=== PATIENT | male | born 1985 | race Caucasian/White ===

== ENCOUNTER 2024-04-13 12:56 | Outpatient (AMB) | payer OTHER, SELFPAY ==
--- NOTE | 2024-04-13 13:20 | MHC.OFFWIV ---
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 Patient Tobacco Use Status: Former Tobacco user Allergies No Known Allergies Allergy (Verified 04/13/24 13:22) Do you need a note to return to daycare/school/sports/work: No HPI HPI Comments History of Present Illness Details The patient is a 38-year-old male presenting with a flare-up of eczema. He reports a recurrent dry, itchy, and scaly rash that he associates with his recent haircut. The rash has previously gone away but has returned with increased severity, manifesting primarily on both sides of his face, including the cheeks, forehead, and hairline. The patient has attempted to alleviate symptoms by using various lotions, including an unspecified eczema lotion and regular hydrating lotion. Despite his efforts, he has found minimal relief, with the rash turning bright red post-showering. Hot showers appear to exacerbate the condition. Past medical history includes eczema during childhood, which was treated with lotion, the composition of which the patient does not recall. In addition to the dermatological concerns, the patient reports issues with vision at nighttime but attributes this potentially to age, with no recent ophthalmological evaluation. [facility] Social History Patient Tobacco Use Status: Former Tobacco user Review of Systems Const All systems reviewed & are unremarkable except as noted in HPI and below Physical Exam Vital Signs: Last Vital Signs Pulse 81 04/13/24 13:22 BP 140/100 H 04/13/24 13:22 Pulse Ox 97 04/13/24 13:22 Oxygen Delivery Method Room Air 04/13/24 13:22 BMI result Body Mass Index 29.2 Const General: cooperative, healthy appearing, comfortable, no acute distress and well developed Orientation/consciousness: patient oriented x3 Limitations: no limitations HEENT Head: Yes normal to inspection Neck Neck: Yes normal visual inspection and Yes supple Skin Other: small patches of dry, scaly areas present bilaterally on the cheeks, forehead, and hairline, no signs of infection noted, no warmth. Neuro General: patient oriented x3 Assessment & Plan Assessment & Plan (1) Eczema: Code(s): L30.9 - Dermatitis, unspecified Qualifiers: Eczema type: unspecified Qualified Code(s): L30.9 - Dermatitis, unspecified Plan: For the eczema, I will prescribe a topical steroid cream, which is stronger than [id number] options. The cream should be applied sparingly on the affected areas, avoiding the eyes and the periocular regions due to the risk of skin thinning. The patient is advised to use the cream for no longer than 7-10 days. Additionally, I recommend discontinuing hot showers and switching to lukewarm water to prevent further irritation. For moisturizing, Aquaphor may be used in conjunction with [id number] 1% hydrocortisone cream for broader facial application. The patient should also wash his hands after using the steroid cream to prevent possible skin changes on his fingertips. Patient was informed and verbally consented to the use of an ambient scribe for clinic note documentation during this visit. Medications: New triamcinolone acetonide 0.1% 1 appl topical BID 30 grams 0RF Coding Level of Care Code New Pt Level 3 (29548) Diagnoses Eczema, unspecified type L30.9 Eczema type: unspecified
[2024-04-13 13:22] VITALS: BP 140/100; PULSE 81; O2SAT 97; BMI 29.2
== END 2024-04-13 14:03 | disposition home or self-care (01) ==
PROVIDERS: Visit Provider Physician Assistant
DX: L30.9 Dermatitis, unspecified (principal)

== ENCOUNTER → 2024-04-13 12:56 | Outpatient (BNVA) | payer OTHER, SELFPAY | PROVIDERS: Visit Provider Physician Assistant | DX: L30.9 Dermatitis, unspecified (principal) | CPT/HCPCS: 99202 ==